=== PATIENT | male | born 1940 | race Caucasian/White ===

== ENCOUNTER 2018-02-23 10:00 | Emergency (ER) | payer MEDICARE ==
--- OUTSIDE RECORDS SUMMARY | 2018-02-23 10:19 | XMS REPORT ---
:1940 External Reference #:[id number] Author Organization [facility] Address [address] [place] [address] Phone [phone] Care Team Providers Name Role Phone Iraj Burton MD Primary Care Physician Unavailable Payers Type Date Identification Numbers Payment Provider Subscriber Medicare Primary Effective: Policy Number: Medicare Christoph Milian 2007 [id number] PayID: [id number] [address] [place] [address] Medigap Part B Expires: 2012 Policy Number: [facility] Michelle Milian [id number] Group Number: [id number] [address] [address] PayID: [id number] KedarLAKHWINDER [place]bell [id number] Problems Date Description Provider Status Onset: 06/11/2007 Coronary arteriosclerosis Ximena Velasco M.D.,FACMarcia Onset: 09/24/2014 Mild chronic obstructive pulmonary Ximena Velasco disease Ashley,FACP Note: on PFTs Onset: 06/11/2007 Impaired fasting glycaemia Ximena Velasco M.D.,FACP Onset: 01/04/2010 Ex-smoker Ximena Velasco M.D.,FACP Onset: 07/13/2010 Mixed hyperlipidemia Ximena Velasco M.D.,FACP Onset: 07/17/2011 Obesity Ximena Velasco M.D.,FACP Onset: 04/10/2014 Essential hypertension Ximena Velasco M.D.,FACP Onset: 09/08/2015 Gastroesophageal reflux disease Iraj Burton Active Ashley,ALEXP Onset: 06/11/2007 Tobacco user Iraj Burton, Inactive Ashley,ALEXP Inactive: 10/03/2012 Onset: 06/11/2007 Pure hypercholesterolemia Iraj Burton M.D.,FACP Resolved Resolved: 10/03/2012 Onset: 08/15/2011 Injury of shoulder region Alistair Morse M.D. Resolved Resolved: 10/03/2012 Onset: 08/15/2011 Swelling of limb Alistair Morse M.D. 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 Quit December 2007 Daily Caffeine Consumes on average 3 cups of regular coffee per day Exercise Type/Frequency Exercises regularly at gym 4-5x/wk General Hx Text 16 yo daughter in [employer] school Allergies, Adverse Reactions, Alerts Date Description Reaction Status Severity Comments 06/11/2007 Wellbutrin active Medications Medication Date Status Form Strength Qnty SIG Indications Ordering Provider Losartan Active Tablets 100mg 90tabs 1 by mouth R05 Iraj Potassium 018 every day Hamlet Burton M.D.,FACP Acetaminophen- Active Tablets 300-30mg 30tabs 1-2 tab by Carl Maldonado Codeine #3 017 mouth at Hamlet Burton, night as M.Hamlet,FACP needed Doxycycline Active Tablets 100mg 8tabs 2 tabs po Iraj Hyclate 017 X1, repeat Hamlet Burton, as needed M.D.,FACP Meclizine HCL Active Tablets 25mg 30tabs 1/2-1 by Iraj 017 mouth three Hamlet Burton, times a day M.D.,FACP as needed Knee Brace Active Misc 1units right knee M23.303 Artis F 017 medial Izzy, float nurse MD stevens M71.21 Viagra 09/08/2015 Active Tablets 50mg 10tabs 1 by mouth N52.1 Iraj as needed Hamlet [facility] Flomax 09/08/2015 Active Capsules 0.4mg 90caps Take 1 N52.1 Iraj Capsule By Hamlet Burton, Mouth Every M.D.,FACP Day Omeprazole 05/21/[address] 20mg 90caps take 1 R05 Carl Maldonado capsule by Hamlet Burton, mouth every M.D.,FACP day Lipitor 04/15/2015 Active Tablets 20mg 90tabs Take 1 I25.10 Iraj Tablet By Hamlet Burton, Mouth AT M.D.,[facility] Bedtime Aspirin 04/10/2014 Active Chewtabs 81mg 1 tab daily I25.10 Iraj Burton M.D.,[facility] Nitroquick 06/11/2007 Active Tablets Sub 0.4mg 50tabs q5 min x3 as I25.10 Iraj needed Hamlet Burton M.D.,[facility] Losartan 12/22/2016 - Hx Tablets 50mg 135tabs take 1 and R05 Iraj Potassium 10/10/2017 1/2 tablets Hamlet Burton, by mouth one M.D.,FACP time daily Ranitidine HCL 10/18/2016 - Hx Capsules 150mg 30caps 1 by mouth K21.9 Iraj 10/10/2017 every day as Hamlet Burton, needed M.D.,FACP Guaifenesin-Co 08/30/2016 - Hx Solution 100-1 118ml take 10 R05 Zsofia deine 10/18/2016 0mg/5 milliliters Bashir, ML by mouth [employer] every evening with plenty of water as needed for cough for 7 days as needed Celebrex 08/08/2016 - Hx Capsules 100mg 60caps 1 tab by M23.30 Artis F 10/10/2017 mouth twice 3 Izzy, a day as MD needed Ibuprofen 04/12/2016 - Hx Tablets 200mg 2-3 tabs a M25.56 Iraj 07/24/2017 day as 1 Hamlet Burton, needed M.D.,FACP Omeprazole 03/03/2015 - Hx Capsules DR 40mg 30caps Take 1 R05 Iraj 05/21/2015 Capsule By Hamlet Burton, Mouth Every M.D.,FACP Day Flomax 03/03/2015 - Hx Capsules 0.4mg 90caps Take 1 R35.1 Iraj 09/08/2015 Capsule By Hamlet Burton, Mouth Every M.D.,FACP Day Losartan 03/03/2015 - Hx Tablets 25mg 90tabs Take 1 R05 Iraj Potassium 12/22/2016 Tablet By Hamlet Burton, Mouth Every M.D.,FACP Day Levaquin 11/20/2014 - Hx Tablets 500mg 5tabs 1 by mouth Jamie 03/03/2015 every day Ashley Tang Zofran 11/19/2014 - Hx Tablets 4mg 30tabs 1 tablet by 787.91 Jamie 03/03/2015 mouth three Tang, times a day M.D. as needed Pantoprazole 08/03/2014 - Hx Solution Rec 40mg 30units 1 by mouth 786.2 Cj Sodium 03/03/2015 every day TABBY Gore Atorvastatin 07/13/2014 - Hx Tablets 20mg 90tabs Take One 414.00 Carl Maldonado Calcium 04/15/2015 Tablet By Hamlet Burton, Mouth Every M.D.,FACP Evening Saw [place] 04/10/2014 - Hx Capsules 160mg twice a day 600.00 Carl Maldonado 03/03/2015 Hamlet Burton M.D.,FACP Lisinopril 04/10/2014 - Hx Tablets 5mg 30tabs 1 by mouth 786.2 Carl Joel 03/03/2015 every day Hamlet Burton M.D.,[facility] Cortisporin 04/10/2014 - Hx Solution 3.5-1 1units 4 ggt r ear 698.9 Iraj 11/18/2014 0000- four times a Hamlet Burton, 1 day for 5-10 M.D.,FACP days Acetasol HC 08/21/2013 - Hx Solution 2-1% 10ml 3-4 ggts to 380.23 WolfgangSandra Joel 04/10/2014 ears tid for Hamlet Burton, 3 days prn M.D.,FACP Lipitor 08/21/2013 - Hx Tablets 20mg 90tabs one tab by 414.00 Iraj 07/13/2014 mouth every Hamlet Burton, night at M.D.,FACP bedtime Robitussin 09/19/2012 - Hx Syrup 100mg 118ml 10 ml po q4h 465.9 Yady Chest 10/03/2012 /5ML prn Chad, Congestion N.P. Atorvastatin 08/28/2011 - Hx Tablets 20mg 90tabs Take One 414.00 Carl Maldonado Calcium 08/21/2013 Tablet By Hamlet Burton, Mouth Every M.D.,[facility] Evening Lipitor 07/17/2011 - Hx Tablets 20mg 90tabs qpm po 272.2 Iraj 08/28/2011 Hamlet Burton M.D.,FACP Aspirin 06/19/2011 - Hx Chewtabs 81mg 305.1 Karen 04/10/2014 Ashley Summers Cipro HC Otic 01/17/2011 - Hx Suspension 10ml 3 ggt ear 382.02 Carl Maldonado 06/19/2011 ear bid for Hamlet Burton, 1 week M.D.,FACP Ceftin 09/12/2010 - Hx Tablets 500mg 14tabs po bid 466.0 Iraj 01/17/2011 Hamlet Burton [facility] Robitussin 09/12/2010 - Hx Solution 200ml 1-2 tsp qid 466.0 Iraj With Codeine 01/17/2011 prn Hamlet Burton M.D.,FACP Aspirin Ec 01/04/2010 - Hx Tablets DR 325mg po qd 305.1 Iraj 06/19/2011 Hamlet Burton M.D.,FACP Levitra 01/04/2010 - Hx Tablets 20mg 12tabs 1 tablet 607.84 Iraj 11/16/2011 qd prn Hamlet Burton M.D.,FACP samples Crestor 01/04/2010 - Hx Tablets 20mg 90tabs Take 1 272.2 Iraj 07/17/2011 Tablet By Hamlet Burton, Mouth Daily Ashley,FACP In The Evening. Azithromycin 10/12/2009 - Hx Tablets 500mg 5tabs 1 tab qd for 462 Carl Maldonado 12/06/2009 5days Hamlet Burton M.D.,FACP Amoxicillin-Po 06/23/2009 - Hx Tablets 875-1 28tabs 1 bid x 14 461.8 Iraj narvaez Clavulanate 10/12/2009 25mg days Hamlet Burton M.D.,FACP Nasonex 06/23/2009 - Hx Suspension 50mcg 1units 2 spays each 461.8 Wolfgang Sanchez 04/10/2014 /Act nostril Hamlet Burton, daily prn Ashley,FACP 381.89 Ibuprofen 04/01/2009 - Hx Tablets 600mg 30tabs qhs prn 608.9 Carl Mcnulty 10/12/2009 Ashley Burton,FACP Cortisporin 03/29/2009 - Hx 1Bottle 4 gtts in 380.10 Iraj Mcnulty Otic gtts 10/12/2009 affected Josephine ear tid x 7 Ashley,FACP days Simvastatin 06/11/2007 - Hx Tablets 20mg 90tabs po qhs 305.1 Iraj Mcnulty 01/04/2010 Ashley Burton,FACP Aspir-Jane 06/11/2007 - Hx Tablets DR 325mg qd 305.1 Iraj Mcnulty 01/04/2010 Ashley Burton,FACP Multi For Him - Hx Capsules 30caps 1 po qd Unknown 04/10/2014 Co Q-10 - Hx Capsules unsure of Unknown 04/10/2014 mgs Vitamin C - Hx Capsules unsure of Unknown 04/10/2014 mgs Vitamin D - Hx Tablets 30tabs 1 po qd Unknown 04/10/2014 unsure of mgs Fish Oil - Hx Capsules unsure of Unknown Burp-Less 04/10/2014 mgs takes 3-4 times per week Tramadol HCL - Hx Tablets 50mg 20tabs 1-2 tablets Carl Mcnulty 09/08/2015 every 6 Sharon, hours as Ashley,FACP needed Medications Administered in Office Medication Date Status Form Strength Qnty SIG Indications Ordering Provider Depomedrol Administered Injection Artis F 40MG 017 MD Cecile Maganaomedjose Administered Injection Artis F 40MG 017 MD Cecile Maganaomedrol Administered Injection Artis F 40MG 017 MD Izzy Technetium TC Administered Injection Kenzie 99M 014 Annel You M.D. Per Unit Dose Up To 40 Millicuries Immunizations CPT Code Status Date Vaccine Lot # [id number] Given 06/01/2017 Influenza Virus Vaccine, Quadrivalent, Split, [id number] Preservative Free 52036 Given 07/20/2016 Zoster (Zostavax) [id number] 94691 Given 07/20/2016 Influenza Virus Vaccine, Quadrivalent, Split [id number] Virus, Im Use 72608 Given 09/08/2015 Pneumococcal Conjugate Vaccine 13 Valent For [id number] Intramuscular Use 19374 Given 05/21/2015 Influenza Virus Vaccine, Quadrivalent, Split, [id number] Preservative Free 59352 Given 07/21/2014 Flu Vaccine Split Virus Preservative Free For [id number] Indiv 3Yr Older Q2037 Given 08/21/2013 Fluvirin Im 3Yrs And Older [id number] 62022 Given 06/16/2012 Influenza Virus 3Yrs & Over [id number] Given 06/19/2011 Fluzone Vaccine [id number] 97412 Given 07/13/2010 Influenza Virus 3Yrs & Over [id number] 28514 Given 09/08/2008 Influenza Virus 3Yrs & Over [id number] 26613 Given 06/11/2007 Pneumonia Vaccine 68918 Given 06/11/2007 Pneumonia Vaccine [id number] 82451 Given 06/11/2007 Influenza Virus 3Yrs & Over [id number] Vital Signs Date Vital Result Comment 02/13/2018 Height 67 inches 5'7" Weight 204.12 lb Heart Rate 67 /min BP Systolic Sitting 156 mmHg BP Diastolic Sitting 78 mmHg Body Temperature 98.1 F O2 % BldC Oximetry 96 % BMI (Body Mass Index) 32.0 kg/m2 10/10/2017 Height 67 inches 5'7" Weight 207.00 lb Heart Rate 80 /min BP Systolic Sitting 150 mmHg BP Diastolic Sitting 80 mmHg Body Temperature 97.5 F O2 % BldC Oximetry 94 % BMI (Body Mass Index) 32.4 kg/m2 07/24/2017 Weight 207.00 lb Heart Rate 77 /min BP Systolic Sitting 190 mmHg BP Diastolic Sitting 80 mmHg Body Temperature 97.9 F O2 % BldC Oximetry 95 % 06/01/2017 Weight 205.00 lb Heart Rate 70 /min BP Systolic Sitting 142 mmHg BP Diastolic Sitting 70 mmHg Body Temperature 97.6 F O2 % BldC Oximetry 97 % 04/05/2017 Height 68 inches 5'8" Weight 200.00 lb Heart Rate 69 /min BP Systolic Sitting 165 mmHg BP Diastolic Sitting 77 mmHg Respiratory Rate 15 /min Body Temperature 97.3 F Pain Level 8 BMI (Body Mass Index) 30.4 kg/m2 03/12/2017 Weight 203.00 lb Heart Rate 76 /min BP Systolic Sitting 178 mmHg BP Diastolic Sitting 88 mmHg BP Systolic Recheck 182 mmHg BP Diastolic Recheck 88 mmHg Body Temperature 97.9 F O2 % BldC Oximetry 98 % 12/22/2016 Weight 202.00 lb Heart Rate 75 /min BP Systolic 166 mmHg BP Diastolic 90 mmHg BP Systolic Recheck 180 mmHg BP Diastolic Recheck 84 mmHg Body Temperature 97.4 F O2 % BldC Oximetry 96 % 12/08/2016 Height 68 inches 5'8" Weight 199.00 lb w/o shoes Heart Rate 60 /min reg BP Systolic 116 mmHg Rue, lg cuff BP Diastolic 74 mmHg Rue, lg cuff BP Systolic Sitting 128 mmHg Lue, lg cuff BP Diastolic Sitting 70 mmHg Lue, lg cuff BP Systolic Standing 124 mmHg Lue BP Diastolic Standing 70 mmHg Lue Respiratory Rate 16 /min BMI (Body Mass Index) 30.3 kg/m2 11/13/2016 Height 68 inches 5'8" Weight 200.00 lb Heart Rate 79 /min BP Systolic 139 mmHg BP Diastolic 76 mmHg Body Temperature 97.1 F BMI (Body Mass Index) 30.4 kg/m2 10/18/2016 Height 66.5 inches 5'6.50" Weight 200.50 lb Heart Rate 78 /min BP Systolic Sitting 126 mmHg BP Diastolic Sitting 60 mmHg Body Temperature 97.3 F O2 % BldC Oximetry 97 % BMI (Body Mass Index) 31.9 kg/m2 09/19/2016 Height 68 inches 5'8" Weight 200.00 lb Heart Rate 81 /min BP Systolic 162 mmHg BP Diastolic 77 mmHg Respiratory Rate 16 /min BMI (Body Mass Index) 30.4 kg/m2 08/30/2016 Weight 202.50 lb Heart Rate 78 /min BP Systolic Sitting 158 mmHg BP Diastolic Sitting 72 mmHg Body Temperature 98.1 F O2 % BldC Oximetry 98 % 08/08/2016 Height 68 inches 5'8" Weight 206.00 lb Respiratory Rate 18 /min Pain Level 6 BMI (Body Mass Index) 31.3 kg/m2 07/20/2016 Weight 207.50 lb Heart Rate 73 /min BP Systolic Sitting 168 mmHg BP Diastolic Sitting 73 mmHg Body Temperature 97.9 F O2 % BldC Oximetry 97 % 04/12/2016 Height 68 inches 5'8" Weight 207.00 lb Heart Rate 80 /min BP Systolic Sitting 154 mmHg BP Diastolic Sitting 64 mmHg Body Temperature 98.1 F O2 % BldC Oximetry 96 % BMI (Body Mass Index) 31.5 kg/m2 03/27/2016 Weight 204.50 lb Heart Rate 78 /min BP Systolic 138 mmHg BP Diastolic 66 mmHg Body Temperature 98.1 F O2 % BldC Oximetry 97 % 09/08/2015 Height 68 inches 5'8" Weight 202.00 lb Heart Rate 70 /min BP Systolic Sitting 149 mmHg BP Diastolic Sitting 72 mmHg Body Temperature 97.2 F O2 % BldC Oximetry 97 % BMI (Body Mass Index) 30.7 kg/m2 05/21/2015 Height 68 inches 5'8" Weight 204.00 lb Heart Rate 72 /min BP Systolic Sitting 149 mmHg BP Diastolic Sitting 65 mmHg Body Temperature 97.5 F O2 % BldC Oximetry 97 % BMI (Body Mass Index) 31.0 kg/m2 03/30/2015 Height 68 inches 5'8" Weight 200.00 lb Heart Rate 70 /min BP Systolic Sitting 134 mmHg BP Diastolic Sitting 68 mmHg Body Temperature 97.7 F O2 % BldC Oximetry 97 % BMI (Body Mass Index) 30.4 kg/m2 03/03/2015 Height 68 inches 5'8" Weight 196.12 lb Heart Rate 66 /min BP Systolic Sitting 144 mmHg BP Diastolic Sitting 80 mmHg Body Temperature 97.6 F O2 % BldC Oximetry 98 % BMI (Body Mass Index) 29.8 kg/m2 11/19/2014 Height 68 inches 5'8" Weight 194.00 lb Heart Rate 102 /min BP Systolic Sitting 134 mmHg BP Diastolic Sitting 76 mmHg Body Temperature 97.5 F O2 % BldC Oximetry 97 % BMI (Body Mass Index) 29.5 kg/m2 09/09/2014 Height 68 inches 5'8" Weight 207.00 lb Heart Rate 76 /min BP Systolic Sitting 157 mmHg BP Diastolic Sitting 73 mmHg Body Temperature 97.5 F O2 % BldC Oximetry 96 % BMI (Body Mass Index) 31.5 kg/m2 08/03/2014 Weight 198.50 lb Heart Rate 88 /min BP Systolic Sitting 166 mmHg BP Diastolic Sitting 68 mmHg Body Temperature 97.3 F 07/21/2014 Weight 203.00 lb Heart Rate 71 /min BP Systolic Sitting 137 mmHg BP Diastolic Sitting 71 mmHg Body Temperature 97.7 F O2 % BldC Oximetry 96 % 04/10/2014 Height 67 inches 5'7" Weight 197.00 lb Heart Rate 72 /min BP Systolic Sitting 144 mmHg BP Diastolic Sitting 74 mmHg Body Temperature 97.7 F BMI (Body Mass Index) 30.9 kg/m2 08/21/2013 Height 67.25 inches 5'7.25" Weight 201.00 lb Heart Rate 68 /min BP Systolic Sitting 119 mmHg BP Diastolic Sitting 70 mmHg BMI (Body Mass Index) 31.2 kg/m2 10/03/2012 Height 67.25 inches 5'7.25" Weight 200.50 lb Heart Rate 80 /min BP Systolic Sitting 126 mmHg BP Diastolic Sitting 64 mmHg BMI (Body Mass Index) 31.2 kg/m2 09/19/2012 Height 67.25 inches 5'7.25" Weight 197.00 lb Heart Rate 72 /min BP Systolic 156 mmHg BP Diastolic 80 mmHg Body Temperature 97.5 F O2 % BldC Oximetry 98 % BMI (Body Mass Index) 30.6 kg/m2 03/11/2012 Height 67.25 inches 5'7.25" Weight 195.00 lb Heart Rate 72 /min BP Systolic Sitting 130 mmHg BP Diastolic Sitting 68 mmHg BMI (Body Mass Index) 30.3 kg/m2 11/16/2011 Height 66.75 inches 5'6.75" Weight 199.00 lb Heart Rate 82 /min BP Systolic Sitting 148 mmHg BP Diastolic Sitting 78 mmHg BMI (Body Mass Index) 31.4 kg/m2 08/15/2011 Height 66.75 inches 5'6.75" Weight 204.00 lb Heart Rate 68 /min BP Systolic Sitting 130 mmHg l BP Diastolic Sitting 72 mmHg l BMI (Body Mass Index) 32.2 kg/m2 07/17/2011 Height 66.75 inches 5'6.75" Weight 203.00 lb Heart Rate 74 /min BP Systolic Sitting 130 mmHg BP Diastolic Sitting 76 mmHg BMI (Body Mass Index) 32.0 kg/m2 06/19/2011 Height 66.75 inches 5'6.75" Weight 203.00 lb Heart Rate 68 /min BP Systolic 150 mmHg Before the Pt left. BP Diastolic 88 mmHg Before the Pt left. BP Systolic Sitting 140 mmHg BP Diastolic Sitting 90 mmHg BMI (Body Mass Index) 32.0 kg/m2 01/17/2011 Weight 201.00 lb Heart Rate 70 /min BP Systolic 168 mmHg BP Diastolic 78 mmHg 09/12/2010 Weight 193.00 lb Heart Rate 76 /min BP Systolic Sitting 142 mmHg BP Diastolic Sitting 82 mmHg Body Temperature 100.4 F Tympanically 07/13/2010 Weight 195.00 lb Heart Rate 76 /min BP Systolic Sitting 136 mmHg BP Diastolic Sitting 74 mmHg 01/04/2010 Weight 196.00 lb Heart Rate 74 /min Irregular Pulse BP Systolic Sitting 132 mmHg BP Diastolic Sitting 74 mmHg 10/12/2009 Weight 195.00 lb Heart Rate 60 /min BP Systolic Sitting 140 mmHg BP Diastolic Sitting 80 mmHg Respiratory Rate 16 /min Body Temperature 98.8 F 06/23/2009 Height 68 inches 5'8" Weight 195.00 lb Heart Rate 64 /min BP Systolic Sitting 146 mmHg BP Diastolic Sitting 72 mmHg BMI (Body Mass Index) 29.6 kg/m2 04/01/2009 Height 68 inches 5'8" Weight 193.00 lb Heart Rate 72 /min BP Systolic Sitting 124 mmHg BP Diastolic Sitting 72 mmHg BMI (Body Mass Index) 29.3 kg/m2 03/29/2009 Height 68 inches 5'8" Weight 195.00 lb Heart Rate 76 /min BP Systolic Sitting 126 mmHg BP Diastolic Sitting 70 mmHg BMI (Body Mass Index) 29.6 kg/m2 03/11/2009 Height 68 inches 5'8" Weight 191.00 lb Heart Rate 60 /min BP Systolic Sitting 130 mmHg BP Diastolic Sitting 76 mmHg Body Temperature 97.7 F BMI (Body Mass Index) 29.0 kg/m2 10/13/2008 Height 68 inches 5'8" Weight 194.00 lb Heart Rate 66 /min BP Systolic Sitting 146 mmHg BP Diastolic Sitting 84 mmHg BMI (Body Mass Index) 29.5 kg/m2 09/08/2008 Height 68 inches 5'8" Weight 195.00 lb Heart Rate 76 /min BP Systolic Sitting 152 mmHg BP Diastolic Sitting 78 mmHg Body Temperature 97.0 F BMI (Body Mass Index) 29.6 kg/m2 02/12/2008 Height 68 inches 5'8" Weight 187.00 lb Heart Rate 74 /min BP Systolic Sitting 122 mmHg BP Diastolic Sitting 70 mmHg BMI (Body Mass Index) 28.4 kg/m2 01/23/2008 Height 68 inches 5'8" Weight 187.00 lb Heart Rate 78 /min BP Systolic Sitting 138 mmHg BP Diastolic Sitting 80 mmHg BMI (Body Mass Index) 28.4 kg/m2 06/11/2007 Height 68 inches 5'8" Weight 175.00 lb Heart Rate 72 /min BP Systolic Sitting 122 mmHg BP Diastolic Sitting 70 mmHg BMI (Body Mass Index) 26.6 kg/m2 Results Test Date Test Result H/L Range Note Basic Metabolic Panel 10/10/2017 Sodium 138 mmol/L 133-145 Potassium 4.8 mmol/L 3.5-5.0 Chloride 106 mmol/L 101-111 Co2 Carbon Dioxide 24 mmol/L 22-32 Anion Gap 8 mmol/L 2-11 Glucose 123 mg/dL High 70-100 Blood Urea Nitrogen 22 mg/dL 6-24 Creatinine 1.13 mg/dL 0.67-1.17 BUN/Creatinine Ratio 19.5 8-20 Calcium 9.1 mg/dL 8.6-10.3 Egfr Non- 63.3 >60 Egfr 81.4 >60 1 Lipid Profile (Trig/Chol/HDL) 10/10/2017 Triglycerides 96 mg/dL 2 Cholesterol 146 mg/dL 3 HDL Cholesterol 54.9 mg/dL 4 LDL Cholesterol 72 mg/dL 5 Liver Function Panel 10/10/2017 Total Protein 6.9 g/dL 6.4-8.9 Albumin 4.1 g/dL 3.2-5.2 Globulin 2.8 g/dL 2-4 Albumin/Globulin Ratio 1.5 1-3 Total Bilirubin 0.70 mg/dL 0.2-1.0 Direct Bilirubin 0.20 mg/dL High 0.03-0.18 Indirect Bilirubin 0.5 mg/dL 0.3-1.0 Alkaline Phosphatase 69 U/L 34-104 Alt 21 U/L 7-52 Ast 22 U/L 13-39 CBC Auto Diff 10/10/2017 White Blood Count 8.2 10^3/uL 3.5-10.8 Red Blood Count 4.64 10^6/uL 4.0-5.4 Hemoglobin 14.6 g/dL 14.0-18.0 Hematocrit 43 % 42-52 Mean Corpuscular Volume 93 fL 80-94 Mean Corpuscular Hemoglobin 32 pg High 27-31 Mean Corpuscular HGB Conc 34 g/dL 31-36 Red Cell Distribution Width 13 % 10.5-15 Platelet Count 222 10^3/uL 150-450 Mean Platelet Volume 8 um3 7.4-10.4 Abs Neutrophils 4.4 10^3/uL 1.5-7.7 Abs Lymphocytes 2.6 10^3/uL 1.0-4.8 Abs Monocytes 0.6 10^3/uL 0-0.8 Abs Eosinophils 0.6 10^3/uL 0-0.6 Abs Basophils 0.1 10^3/uL 0-0.2 Abs Nucleated RBC 0 10^3/uL Granulocyte % 53.2 % 38-83 Lymphocyte % 31.2 % 25-47 Monocyte % 7.8 % High 0-7 Eosinophil % 6.7 % High 0-6 Basophil % 1.1 % 0-2 Nucleated Red Blood Cells % 0 Laboratory test finding 10/10/2017 Testosterone Total 213.23 ng/dL Low 240 -950 PSA Diagnostic 2.746 ng/mL 0-4.000 6 CBC Auto Diff 10/16/2016 White Blood Count 8.7 10^3/uL 3.5-10.8 Red Blood Count 4.66 10^6/uL 4.0-5.4 Hemoglobin 14.6 g/dL 14.0-18.0 Hematocrit 43 % 42-52 Mean Corpuscular Volume 93 fL 80-94 Mean Corpuscular Hemoglobin 31 pg 27-31 Mean Corpuscular HGB Conc 34 g/dL 31-36 Red Cell Distribution Width 14 % 10.5-15 Platelet Count 210 10^3/uL 150-450 Mean Platelet Volume 8 um3 7.4-10.4 Abs Neutrophils 4.8 10^3/uL 1.5-7.7 Abs Lymphocytes 2.7 10^3/uL 1.0-4.8 Abs Monocytes 0.7 10^3/uL 0-0.8 Abs Eosinophils 0.4 10^3/uL 0-0.6 Abs Basophils 0.1 10^3/uL 0-0.2 Abs Nucleated RBC 0.01 10^3/uL Granulocyte % 55.8 % 38-83 Lymphocyte % 30.7 % 25-47 Monocyte % 7.9 % 1-9 Eosinophil % 4.3 % 0-6 Basophil % 1.3 % 0-2 Nucleated Red Blood Cells % 0.1 Laboratory test finding 10/16/2016 Vitamin B12 314 pg/mL 180-914 7 Lipid Profile (Trig/Chol/HDL) 10/16/2016 Triglycerides 66 mg/dL 8 Cholesterol 131 mg/dL 9 HDL Cholesterol 52.9 mg/dL 10 LDL Cholesterol 65 mg/dL 11 Basic Metabolic Panel 10/16/2016 Sodium 135 mmol/L 133-145 Potassium 4.4 mmol/L 3.5-5.0 Chloride 104 mmol/L 101-111 Co2 Carbon Dioxide 25 mmol/L 22-32 Anion Gap 6 mmol/L 2-11 Glucose 109 mg/dL High 70-100 Blood Urea Nitrogen 21 mg/dL 6-24 Creatinine 1.13 mg/dL 0.67-1.17 BUN/Creatinine Ratio 18.6 8-20 Calcium 9.1 mg/dL 8.6-10.3 Egfr Non- 63.4 >60 Egfr 81.6 >60 12 Lipid Profile (Trig/Chol/HDL) 08/18/2015 Triglycerides 110 mg/dL 13 Cholesterol 139 mg/dL 14 HDL Cholesterol 57.4 mg/dL 15 LDL Cholesterol 60 mg/dL 16 Basic Metabolic Panel 08/18/2015 Sodium 137 mmol/L 133-145 Potassium 4.7 mmol/L 3.5-5.0 Chloride 104 mmol/L 101-111 Co2 Carbon Dioxide 26 mmol/L 22-32 Anion Gap 7 mmol/L 2-11 Glucose 104 mg/dL High 70-100 Blood Urea Nitrogen 21 mg/dL 6-24 Creatinine 0.99 mg/dL 0.67-1.17 BUN/Creatinine Ratio 21.2 High 8-20 Calcium 9.1 mg/dL 8.6-10.3 Egfr Non- 74.1 >60 Egfr 95.3 >60 17 Laboratory test 08/18/2015 Hemoglobin A1c (Glyco 5.6 % Less than 6.0 18 finding HGB) Laboratory test 03/05/2015 Blood Urea Nitrogen 16 mg/dL 6-24 finding BUN Creatinine 03/05/2015 Creatinine 1.05 mg/dL 0.67-1.17 Egfr Non- 69.4 >60 Egfr 89.3 >60 19 O&P Ova & Parasites Full 11/19/2014 Ova Parasite Concen Full (SEE NOTE) 20, 21 Laboratory test finding 11/19/2014 Stool Culture (SEE NOTE) 20, 22 O P: Giardia/Cryptospor Screen (SEE NOTE) 20, 23 Lipid Panel - [facility] 04/07/2014 Creatine Kinase 149 U/L 10-223 24, 25 Comp Metabolic Panel 04/07/2014 Sodium 136 mmol/L 133-145 24 Potassium 4.2 mmol/L 3.7-5.6 24 Chloride 105 mmol/L 101-111 24 Co2 Carbon Dioxide 24 mmol/L 22-32 24 Anion Gap 7 mmol/L 2-11 24 Glucose 100 mg/dL 70-100 24 Blood Urea Nitrogen 16 mg/dL 6-24 24 Creatinine 0.96 mg/dL 0.67-1.17 24 BUN/Creatinine Ratio 16.7 8-20 24 Calcium 8.7 mg/dL 8.6-10.3 24 Total Protein 6.8 g/dL 6.4-8.9 24 Albumin 4.0 g/dL 3.2-5.2 24 Globulin 2.8 g/dL 2-4 24 Albumin/Globulin Ratio 1.4 1-3 24 Total Bilirubin 0.90 mg/dL 0.2-1.0 24 Alkaline Phosphatase 59 U/L 34-104 24 Alt 20 U/L 7-52 24 Ast 20 U/L 13-39 24 Egfr Non- 77.2 >60 24 Egfr 99.3 >60 24, 26 Lipid Profile (Trig/Chol/HDL) 04/07/2014 Triglycerides 150 mg/dL 24, 27 Cholesterol 138 mg/dL 24, 28 HDL Cholesterol 49.5 mg/dL 24, 29 LDL Cholesterol 59 mg/dL 24, 30 DR Garcia's Lab Panel 09/27/2012 TSH (Thyroid Stimulating 1.30 miu/mL 0.34-5.60 31 Horm) Comp Metabolic Panel 09/27/2012 Sodium 137 mmol/L 133-145 Potassium 4.7 mmol/L 3.5-5.0 Chloride 108 mmol/L 101-111 Co2 Carbon Dioxide 21.0 mmol/L Low 22-32 Anion Gap 8.0 mmol/L 2-11 Glucose 102 mg/dL High 70-100 Blood Urea Nitrogen 14 mg/dL 6-24 Creatinine 0.90 mg/dL 0.50-1.40 BUN/Creatinine Ratio 15.6 8-20 Calcium 9.1 mg/dL 8.1-9.9 Total Protein 6.7 g/dL 6.2-8.1 Albumin 4.0 g/dL 3.2-5.2 Globulin 2.7 g/dL 2-4 Albumin/Globulin Ratio 1.5 1-3 Total Bilirubin 1.2 mg/dL 0.4-1.5 Alkaline Phosphatase 56 U/L 30-110 Alt 31 U/L 14-54 Ast 38 U/L 12-42 Egfr Non- 83.4 >60 Egfr 107.3 >60 32 Lipid Profile (Trig/Chol/HDL) 09/27/2012 Triglycerides 58 mg/dL 40-200 Cholesterol 162 mg/dL Less than 200 HDL Cholesterol 60 mg/dL 40-60 33 Cholesterol/HDL Ratio 2.7 Average 1-4.44 LDL Cholesterol 90.4 mg/dL Less Than 100 34 CBC Auto Diff 09/27/2012 White Blood Count 8.5 10^3/uL 4.8-10.8 Red Blood Count 4.94 10^6/uL 4.0-5.4 Hemoglobin 16.0 g/dL 14.0-18.0 Hematocrit 48 % 42-52 Mean Corpuscular Volume 97 fL High 80-94 Mean Corpuscular Hemoglobin 33 pg High 27-31 Mean Corpuscular HGB Conc 34 g/dL 31-36 Red Cell Distribution Width 14 % 10.5-15 Platelet Count 173 10^3/uL 150-450 Mean Platelet Volume 9 um3 7.4-10.4 Abs Neutrophils 4.8 10^3/uL 1.5-7.7 Abs Lymphocytes 2.4 10^3/uL 1.0-4.8 Abs Monocytes 0.7 10^3/uL 0-0.8 Abs Eosinophils 0.4 10^3/uL 0-0.6 Abs Basophils 0.1 10^3/uL 0-0.2 Abs Nucleated RBC 0.02 10^3/uL Granulocyte % 57.0 % 38-83 Lymphocyte % 28.8 % 25-47 Monocyte % 8.2 % 1-9 Eosinophil % 4.6 % 0-6 Basophil % 1.4 % 0-2 Nucleated Red Blood Cells % 0.3 Lipid Panel - [facility] 03/05/2012 CPK (Creatine Kinase) 133 U/L 0-200 Comp Metabolic Panel 03/05/2012 Sodium 135 mmol/L 135-145 Potassium 3.9 mmol/L 3.5-5.0 Chloride 105 mmol/L 101-111 Co2 (Carbon Dioxide) 24.0 mmol/L 22-32 Anion Gap 6.0 mmol/L 2-11 35 Glucose 92 mg/dL 70-100 BUN 15 mg/dL 6-24 Creatinine 1.0 mg/dL 0.50-1.40 One Over Creatinine 1.00 BUN/Creatinine Ratio 15.0 8-20 Calcium 9.0 mg/dL 8.1-9.9 Total Protein 6.7 GM/DL 6.2-8.1 Albumin 3.9 GM/DL 3.2-5.2 Globulin 2.8 GM/DL 2-4 Albumin/Globulin Ratio 1.4 1-3 Bilirubin Total 1.1 mg/dL 0.4-1.5 36 Alkaline Phosphatase 69 U/L 39-117 Alt (SGPT) 27 U/L 17-63 Ast (Sgot) 26 U/L 12-42 eGFR Non- 74.1 > 60 eGFR 95.3 > 60 37 Lipid Profile (Trig/Chol/HDL) 03/05/2012 Triglyceride 158 mg/dL 40-200 Cholesterol 172 mg/dL Less Than 200 38 High Density Lipoprotein 58 mg/dL 40-60 39 Cholesterol/HDL Ratio 2.97 AVERAGE 1-4.97 Low Density Lipoprotein 82 mg/dL Less Than 100 40 Lipid Panel - [facility] 10/19/2011 CPK (Creatine Kinase) 183 U/L 0-200 Comp Metabolic Panel 10/19/2011 Sodium 134 mmol/L Low 135-145 Potassium 4.7 mmol/L 3.5-5.0 Chloride 103 mmol/L 101-111 Co2 (Carbon Dioxide) 25.0 mmol/L 22-32 Anion Gap 6.0 mmol/L 2-11 41 Glucose 106 mg/dL High 70-100 BUN 13 mg/dL 6-24 Creatinine 0.9 mg/dL 0.50-1.40 One Over Creatinine 1.11 BUN/Creatinine Ratio 14.4 8-20 Calcium 8.7 mg/dL 8.1-9.9 Total Protein 6.7 GM/DL 6.2-8.1 Albumin 3.9 GM/DL 3.2-5.2 Globulin 2.8 GM/DL 2-4 Albumin/Globulin Ratio 1.4 1-3 Bilirubin Total 0.9 mg/dL 0.4-1.5 42 Alkaline Phosphatase 72 U/L 39-117 Alt (SGPT) 27 U/L 17-63 Ast (Sgot) 30 U/L 12-42 eGFR Non- 83.7 > 60 eGFR 107.6 > 60 43 Lipid Profile (Trig/Chol/HDL) 10/19/2011 Triglyceride 134 mg/dL 40-200 Cholesterol 212 mg/dL High Less Than 200 44 High Density Lipoprotein 55 mg/dL 40-60 45 Cholesterol/HDL Ratio 3.85 AVERAGE 1-4.97 Low Density Lipoprotein 130 mg/dL High Less Than 100 46 Lipid Profile (Trig/Chol/HDL) 07/11/2011 Triglyceride 125 mg/dL 40-200 Cholesterol 158 mg/dL Less Than 200 47 High Density Lipoprotein 55 mg/dL 40-60 48 Cholesterol/HDL Ratio 2.87 AVERAGE 1-4.97 Low Density Lipoprotein 78 mg/dL Less Than 100 49 Comp Metabolic Panel 07/11/2011 Sodium 138 mmol/L 135-145 Potassium 4.5 mmol/L 3.5-5.0 Chloride 102 mmol/L 101-111 Co2 (Carbon Dioxide) 28.0 mmol/L 22-32 Anion Gap 8.0 mmol/L 2-11 50 Glucose 108 mg/dL High 70-100 BUN 12 mg/dL 6-24 Creatinine 1.0 mg/dL 0.50-1.40 One Over Creatinine 1.00 BUN/Creatinine Ratio 12.0 8-20 Calcium 9.2 mg/dL 8.1-9.9 Total Protein 6.3 GM/DL 6.2-8.1 Albumin 4.1 GM/DL 3.2-5.2 Globulin 2.2 GM/DL 2-4 Albumin/Globulin Ratio 1.9 1-3 Bilirubin Total 1.0 mg/dL 0.4-1.5 51 Alkaline Phosphatase 61 U/L 39-117 Alt (SGPT) 33 U/L 17-63 Ast (Sgot) 33 U/L 12-42 eGFR Non- 74.1 > 60 eGFR 95.3 > 60 52 Laboratory test 07/11/2011 Hemoglobin A1c 6.5 % High Less Than 6.0 53 finding Laboratory test 06/20/2010 Testosterone Total 244.2 ng/dL 175-781 finding FSH And LH 06/20/2010 FSH 6.46 MIU/ML 54 Lutenizing Hormone 3.60 MIU/ML 55 Lipid Panel - [facility] 06/20/2010 CPK (Creatine Kinase) 118 U/L 0-200 Comp Metabolic Panel 06/20/2010 Sodium 137 mmol/L 135-145 Potassium 4.8 mmol/L 3.5-5.0 Chloride 105 mmol/L 101-111 Co2 (Carbon Dioxide) 25.0 mmol/L 22-32 Anion Gap 7.0 mmol/L 2-11 56 Glucose 96 mg/dL 70-100 57 BUN 15 mg/dL 6-24 Creatinine 1.00 mg/dL 0.50-1.40 One Over Creatinine 1.00 BUN/Creatinine Ratio 15.0 8-20 Calcium 9.2 mg/dL 8.1-9.9 Total Protein 7.5 GM/DL 6.2-8.1 Albumin 4.5 GM/DL 3.2-5.2 Globulin 3.0 GM/DL 2-4 Albumin/Globulin Ratio 1.5 1-3 Bilirubin Total 1.0 mg/dL 0.4-1.5 58 Alkaline Phosphatase 68 U/L 39-117 Alt (SGPT) 32 U/L 17-63 Ast (Sgot) 33 U/L 12-42 eGFR Non- 79.0 > 60 eGFR 95.6 > 60 59 Lipid Profile (Trig/Chol/HDL) 06/20/2010 Triglyceride 141 mg/dL 40-200 Cholesterol 156 mg/dL Less Than 200 60 High Density Lipoprotein 60 mg/dL 40-60 61 Cholesterol/HDL Ratio 2.60 AVERAGE 1-4.97 Low Density Lipoprotein 68 mg/dL Less Than 100 62 Laboratory test finding 01/04/2010 Hemoglobin A1c 5.8 5-7 Comp Metabolic Panel 12/28/2009 Sodium 136 mmol/L 135-145 Potassium 4.8 mmol/L 3.5-5.0 Chloride 105 mmol/L 101-111 Co2 (Carbon Dioxide) 24.0 mmol/L 22-32 Anion Gap 7.0 mmol/L 2-11 63 Glucose 97 mg/dL 70-100 64 BUN 18 mg/dL 6-24 Creatinine 0.90 mg/dL 0.50-1.40 One Over Creatinine 1.10 BUN/Creatinine Ratio 20.0 8-20 Calcium 8.8 mg/dL 8.1-9.9 65 Total Protein 6.8 GM/DL 6.2-8.1 Albumin 4.0 GM/DL 3.2-5.2 Globulin 2.8 GM/DL 2-4 Albumin/Globulin Ratio 1.4 1-3 Bilirubin Total 1.1 mg/dL 0.4-1.5 66 Alkaline Phosphatase 68 U/L 39-117 Alt (SGPT) 22 U/L 17-63 Ast (Sgot) 28 U/L 12-42 eGFR Non- 89.5 > 60 eGFR 108.2 > 60 67 Lipid Profile (Trig/Chol/HDL) 12/28/2009 Triglyceride 64 mg/dL 40-200 Cholesterol 175 mg/dL Less Than 200 68 High Density Lipoprotein 55 mg/dL 40-60 69 Cholesterol/HDL Ratio 3.18 AVERAGE 1-4.97 Low Density Lipoprotein 107 mg/dL High Less Than 100 70 Laboratory test finding 12/28/2009 PSA Screening 1.56 NG/ML 0-4 71 Lipid Panel - [facility] 12/28/2009 CPK (Creatine Kinase) 203 U/L High 0-200 Laboratory test finding 10/12/2009 Throat Culture Full NF 72 CBC With Manual Diff 09/11/2008 White Blood Count 10.9 CUMM High 4.8-10.8 73 Red Cell Count 4.76 CUMM 4.6-6.2 73 Hemoglobin 15.4 g/dL 14.0-18.0 73 Hematocrit 44 % 42-52 73 Mean Corpuscular Volume 93 um3 80-94 73 Mean Corpuscular Hemoglob 32 pg High 27-31 73 Mean Corpuscular HGB Cone 35 g/dL 32-36 73 Redcell Distribution WDTH 13 % 10.5-15 73 Platelet Count 260 CUMM 150-450 73 Mean Platelet Volume 7.5 um3 7.4-10.4 73 Polysegmented Neutrophil 65 % 38-83 73 Band Neutrophil 1 % 0-8 73 Lymphocyte 27 % 25-47 73 Monocyte 5 % 0-13 73 Eosenophil 2 % 0-6 73 Absolute Neutrophil Count 7.1 73 RBC Morphology NORMAL 73 Laboratory test finding 09/11/2008 PSA Screening 1.39 NG/ML 0-4 73, 74 Basic Metabolic Panel 09/11/2008 Sodium 137 mmol/L 135-145 73 Potassium 4.9 mmol/L 3.5-5.0 73 Chloride 104 mmol/L 101-111 73 Co2 (Carbon Dioxide) 28.0 mmol/L 22-32 73 Anion Gap 5.0 mmol/L 2-11 73, 75 Glucose 106 mg/dL High 70-100 73, 76 BUN 13 mg/dL 6-24 73 Creatinine 1.00 mg/dL 0.50-1.40 73 One Over Creatinine 1.00 73 BUN/Creatinine Ratio 13.0 8-20 73 Calcium 9.3 mg/dL 8.1-9.9 73, 77 Lipid Profile (Trig/Chol/HDL) 09/11/2008 Triglyceride 92 mg/dL 40-200 73 Cholesterol 165 mg/dL Less Than 200 73, 78 High Density Lipoprotein 51 mg/dL 40-60 73, 79 Cholesterol/HDL Ratio 3.24 AVERAGE 1-4.97 73 Low Density Lipoprotein 96 mg/dL Less Than 100 73, 80 1 Because ethnic data is not always readily available, this report includes an eGFR for both -Americans and non- Americans. The National Kidney Disease Education Program (NKDEP) does not endorse the use of the MDRD equation for patients that are not between the ages of 18 and 70, are , have extremes of body size, muscle mass, or nutritional status, or are non- or non-. According to the National Kidney Foundation, irrespective of diagnosis, the stage of the disease is based on the level of kidney function: Stage Description GFR(mL/min/1.73 m(2)) 1 Kidney damage with normal or decreased GFR 90 2 Kidney damage with mild decrease in GFR 60-89 3 Moderate decrease in GFR 30-59 4 Severe decrease in GFR 15-29 5 Kidney failure <15 (or dialysis) 2 Desirable: <150 Borderline High: 150-199 High: 200-499 Very High: >500 3 Desirable: <200 Borderline High: 200-239 High: >239 4 Low: <40 Desirable: 40-60 High: >60 5 Desirable: <100 Near Optimal: 100-129 Borderline High: 130-159 High: 160-189 Very High: >189 6 Serum levels of PSA measured using the [employer] DXI Hybritech immunoassay should not be interpreted as absolute evidence of the presence or absence of disease. The PSA value should be used in conjunction with other pertinent clinical diagnostic procedures. The values obtained with different assay methods or kits cannot be used interchangeably. 7 Normal Range 180 to 914 Indeterminate Range 145 to 180 Deficient Range <145 8 Desirable <150 Borderline high 150-199 High 200-499 Very High >500 9 Desirable <200 Borderline high 200-239 High >239 10 Low <40 Desirable: 40-60 High: >60 11 Desirable: <100 mg/dL Near Optimal: 100-129 mg/dL Borderline High: 130-159 mg/dL High: 160-189 mg/dL Very High: >189 mg/dL 12 Because ethnic data is not always readily available, this report includes an eGFR for both -Americans and non- Americans. The National Kidney Disease Education Program (NKDEP) does not endorse the use of the MDRD equation for patients that are not between the ages of 18 and 70, are , have extremes of body size, muscle mass, or nutritional status, or are non- or non-. According to the National Kidney Foundation, irrespective of diagnosis, the stage of the disease is based on the level of kidney function: Stage Description GFR(mL/min/1.73 m(2)) 1 Kidney damage with normal or decreased GFR 90 2 Kidney damage with mild decrease in GFR 60-89 3 Moderate decrease in GFR 30-59 4 Severe decrease in GFR 15-29 5 Kidney failure <15 (or dialysis) 13 Desirable <150 Borderline high 150-199 High 200-499 Very High >500 14 Desirable <200 Borderline high 200-239 High >239 15 Low <40 Desirable: 40-60 High: >60 16 Desirable: <100 mg/dL Near Optimal: 100-129 mg/dL Borderline High: 130-159 mg/dL High: 160-189 mg/dL Very High: >189 mg/dL 17 Because ethnic data is not always readily available, this report includes an eGFR for both -Americans and non- Americans. The National Kidney Disease Education Program (NKDEP) does not endorse the use of the MDRD equation for patients that are not between the ages of 18 and 70, are , have extremes of body size, muscle mass, or nutritional status, or are non- or non-. According to the National Kidney Foundation, irrespective of diagnosis, the stage of the disease is based on the level of kidney function: Stage Description GFR(mL/min/1.73 m(2)) 1 Kidney damage with normal or decreased GFR 90 2 Kidney damage with mild decrease in GFR 60-89 3 Moderate decrease in GFR 30-59 4 Severe decrease in GFR 15-29 5 Kidney failure <15 (or dialysis) 18 Therapeutic target for the treatment of diabetes Mellitus patients is <7% HBA1C, and in selective patients <6.0%.Please refer to [place] [employer] Diabetic care guidelines for further information. 19 Because ethnic data is not always readily available, this report includes an eGFR for both -Americans and non- Americans. The National Kidney Disease Education Program (NKDEP) does not endorse the use of the MDRD equation for patients that are not between the ages of 18 and 70, are , have extremes of body size, muscle mass, or nutritional status, or are non- or non-. According to the National Kidney Foundation, irrespective of diagnosis, the stage of the disease is based on the level of kidney function: Stage Description GFR(mL/min/1.73 m(2)) 1 Kidney damage with normal or decreased GFR 90 2 Kidney damage with mild decrease in GFR 60-89 3 Moderate decrease in GFR 30-59 4 Severe decrease in GFR 15-29 5 Kidney failure <15 (or dialysis) 20 Submitted to [facility] via [employer] system by [id number] at 1417 on 11/20/14. Verbal to ADIS [email or web address] RUN DATE: 11/20/14 [facility] LAB LIVE PAGE 1 RUN TIME: [address], [place], [place] [address] Specimen Inquiry Name: MAICOLCHRISTOPH : [address]: Jamie Tang MD Acct: [id number] Unit: [id number] AGE: 74 Location: [facility] Re11/19/14 SEX: M Status: REG REF SPEC: [id number] ALFREDITO: 11/19/14-[address]: Jamie Tang MD REQ: [id number] RECD: 11/19/14-1016 STATUS: RES _ SOURCE: STOOL SPDESC: ORDERED: Stool Culture, O P: Giar/Crypt COMMENTS: Submitted to [facility] via [employer] system by [id number] at 1417 on 11/20/14. Verbal to ADIS VAZQUEZ by [email or web address] at 1503 on 11/20/14. Results read back accurately. QUERIES: Provider Requisition # [id number] Procedure Result Verified Site Stool Culture Preliminary 11/20/14- 1324 ML Organism 1 CAMPYLOBACTER SPECIES Shiga Toxin 1 2 Final 11/20/14- 0947 ML Organism 1 Negative Shiga Toxin 1 2 Immunochromatographic Assay O P: Giardia/Cryptospor Screen PENDING * ML - MAIN LAB ([facility]) . END OF REPORT * ML=Testing performed at Main Lab DEPARTMENT OF PATHOLOGY, [address] [place] [address] Johnathan Evans M.D. Director [facility] # [id number] RUN DATE: 11/21/14 [facility] LAB LIVE PAGE 1 RUN TIME: [address] [place] [address] Specimen Inquiry Name: CHRISTOPH MILIAN : [address]: Jamie Tang MD Acct: [id number] Unit: [id number] AGE: 74 Location: [facility] Re11/19/14 SEX: M Status: REG REF SPEC: [id number] ALFREDITO: 11/19/14-[address] [facility] [address]: Jamie Tang MD REQ: [id number] RECD: 11/19/14-1017 STATUS: COMP _ SOURCE: STOOL SPDESC: ORDERED: Stool Culture, O P: Giar/Crypt COMMENTS: [email or web address] via [employer] system by [email or web address] at 1417 on 11/20/14. Verbal to ADIS VAZQUEZ by [id number] at 1503 on 11/20/14. Results read back accurately. QUERIES: Provider Requisition # [id number] Procedure Result Verified Site Stool Culture Final 11/21/14- 1335 ML Organism 1 CAMPYLOBACTER SPECIES Result No additional pathogens isolated Testing for Salmonella, Shigella, Aeromonas, Plesiomonas, Yersinia and Campylobacter are included in a Stool Culture. Vibrio spp not routinely tested for in a stool culture. If testing is desired, please request specifically when placing test order. Sensitivities not routinely performed on stool isolates, as antibiotics may prolong the carriage rate of bacteria. Please contact the microbiology lab if sensitivities are required. Shiga Toxin 1 2 Final 11/20/14- 0947 ML Organism 1 Negative Shiga Toxin 1 2 CONTINUED ON NEXT PAGE * ML=Testing performed at Main Lab DEPARTMENT OF PATHOLOGY, [facility] [place], [place] [address] Johnathan Evans M.D. Director [facility] # [id number] RUN DATE: 11/21/14 [facility] LAB LIVE PAGE 2 RUN TIME: [address] [place] [address] Specimen Inquiry Patient: CHRISTOPH MILIAN [id number] (Continued) Specimen: [id number] Collected: 11/19/14 Received: 11/19/14-7 (Continued) Procedure Result Verified Site Shiga Toxin 1 2 Final (continued) 11/20/14- 0947 Immunochromatographic Assay O P: Giardia/Cryptospor Screen Final 11/20/14- 1505 ML Organism 1 Neg Cryptosporidium/Giardia Giardia and cryptosporidium antigen testing performed by enzyme immunoassay. If patient is immunocompromised or has traveled to or is from a developing country, a full ova and parasite exam with microscopic (OPMIC) is recommended. All samples will be held one month in case full ova and parasite testing is requested. Contact the Microbiology Department at [phone]. TEST LIMITATIONS: As with all diagnostic procedures, the results obtained should be used in conjunction with other clinical information available the physician, including confirmation by another method. Negative results can occur in samples containing antigen below lower limits of detection of the assay. One negative specimen does not rule out the possibility of a parasitic infection. To improve detection it is recommended that three specimens be collected on separate days over a period of not more than seven days. The use of colonic washes, aspirates or other diluted sample types has not been established and could affect the performance of the assay. Stool samples contaminated with an oily or particulate base (eg. Barium, mineral oil etc.) could interfere with the test and are not recommended. * ML - MAIN LAB ([facility]) . END OF REPORT * ML=Testing performed at Main Lab DEPARTMENT OF PATHOLOGY, [address] [place] [address] Johnathan Evans M.D. Director [facility] # [id number] RUN DATE: 11/20/14 [facility] LAB LIVE PAGE 1 RUN TIME: [address] [place] [address] Specimen Inquiry Name: CHRISTOPH MILIAN : [address]: Jamie Tang MD Acct: [id number] Unit: [id number] AGE: 74 Location: [facility] Re11/19/14 SEX: M Status: REG REF SPEC: [id number] ALFREDITO: 11/19/14-[address]: Jamie Tang MD REQ: [id number] RECD: 11/19/14-7 STATUS: RES _ SOURCE: STOOL SPDESC: ORDERED: Stool Culture, O P: Giar/Crypt COMMENTS: Submitted to [facility] via [employer] system by [email or web address] at 1417 on 11/20/14. Verbal to ADIS VAZQUEZ by [id number] at 1503 on 11/20/14. Results read back accurately. QUERIES: Provider Requisition # [id number] Procedure Result Verified Site Stool Culture Preliminary 11/20/14- 1324 ML Organism 1 CAMPYLOBACTER SPECIES Shiga Toxin 1 2 Final 11/20/14- 0947 ML Organism 1 Negative Shiga Toxin 1 2 Immunochromatographic Assay O P: Giardia/Cryptospor Screen Final 11/20/14- 1505 ML Organism 1 Neg Cryptosporidium/Giardia Giardia and cryptosporidium antigen testing performed by enzyme immunoassay. If patient is immunocompromised or has traveled to or is from a developing country, a full ova and parasite exam with microscopic (OPMIC) is recommended. All samples will be held one month in case full ova and parasite testing is requested. Contact the Microbiology Department at [phone]. TEST LIMITATIONS: As with all diagnostic procedures, the results obtained should be used in conjunction with other clinical information available the physician, including confirmation CONTINUED ON NEXT PAGE * ML=Testing performed at Main Lab DEPARTMENT OF PATHOLOGY, [facility] [place], [place] [address] Johnathan Evans M.D. Director [facility] # [id number] RUN DATE: 11/20/14 [facility] LAB LIVE PAGE 2 RUN TIME: 3814 [facility] [place], [place] [address] Specimen Inquiry Patient: CHRISTOPH MILIAN [id number] (Continued) Specimen: [id number] Collected: 11/19/14 Received: 11/19/14-1016 (Continued) Procedure Result Verified Site O P: Giardia/Cryptospor Screen Final (continued) 11/20/14- 1505 by another method. Negative results can occur in samples containing antigen below lower limits of detection of the assay. One negative specimen does not rule out the possibility of a parasitic infection. To improve detection it is recommended that three specimens be collected on separate days over a period of not more than seven days. The use of colonic washes, aspirates or other diluted sample types has not been established and could affect the performance of the assay. Stool samples contaminated with an oily or particulate base (eg. Barium, mineral oil etc.) could interfere with the test and are not recommended. * ML - MAIN LAB ([facility]) . END OF REPORT * ML=Testing performed at Main Lab DEPARTMENT OF PATHOLOGY, [address] [place] [address] Johnathan Evans M.D. Director [facility] # [id number] FASTING 10 HOUR 25 FASTING 10 HOUR 26 Because ethnic data is not always readily available, this report includes an eGFR for both -Americans and non- Americans. The National Kidney Disease Education Program (NKDEP) does not endorse the use of the MDRD equation for patients that are not between the ages of 18 and 70, are , have extremes of body size, muscle mass, or nutritional status, or are non- or non-. According to the National Kidney Foundation, irrespective of diagnosis, the stage of the disease is based on the level of kidney function: Stage Description GFR(mL/min/1.73 m(2)) 1 Kidney damage with normal or decreased GFR 90 2 Kidney damage with mild decrease in GFR 60-89 3 Moderate decrease in GFR 30-59 4 Severe decrease in GFR 15-29 5 Kidney failure <15 (or dialysis) 27 Desirable <150 Borderline high 150-199 High 200-499 Very High >500 28 Desirable <200 Borderline high 200-239 High >239 29 Low <40 Desirable: 40-60 High: >60 30 Desirable <100 Near Optimal 100-129 Borderline high 130-159 High 160-189 Very High >189 31 Fasting 32 Because ethnic data is not always readily available, this report includes an eGFR for both -Americans and non- Americans. The National Kidney Disease Education Program (NKDEP) does not endorse the use of the MDRD equation for patients that are not between the ages of 18 and 70, are , have extremes of body size, muscle mass, or nutritional status, or are non- or non-. According to the National Kidney Foundation, irrespective of diagnosis, the stage of the disease is based on the level of kidney function: Stage Description GFR(mL/min/1.73 m(2)) 1 Kidney damage with normal or decreased GFR 90 2 Kidney damage with mild decrease in GFR 60-89 3 Moderate decrease in GFR 30-59 4 Severe decrease in GFR 15-29 5 Kidney failure <15 (or dialysis) 33 HDL Interpretation: Undesirable: High Risk: Less than 40 MG/DL Desirable: Low Risk: Greater than 60 MG/DL 34 LDL Interpretation: Low Risk Optimal Level: LDL Less than 100 MG/DL Near or Above Optimal: LDL 100-129 MG/DL Borderline High Risk: LDL 130-159 MG/DL High Risk: LDL 160-189 MG/DL Very High Risk: LDL Greater than 189 MG/DL 35 Anion gap measurement may be of limited value in the presence of any alkalosis, especially in a combined acid base disorder. . 36 A metabolite of Naproxen, O-desmethylnaproxen, has been shown to interfere with the Jendrassik-Nicole method for measuring total bilirubin. Samples from patients who have taken Naproxen have shown spurious elevation in total bilirubin levels. 37 Because ethnic data is not always readily available, this report includes an eGFR for both -Americans and non- Americans. The National Kidney Disease Education Program (NKDEP) does not endorse the use of the MDRD equation for patients that are not between the ages of 18 and 70, are , have extremes of body size, muscle mass, or nutritional status, or are non- or non-. According to the National Kidney Foundation, irrespective of diagnosis, the stage of the disease is based on the level of kidney function: Stage Description GFR(mL/min/1.73 m(2)) 1 Kidney damage with normal or decreased GFR 90 2 Kidney damage with mild decrease in GFR 60-89 3 Moderate decrease in GFR 30-59 4 Severe decrease in GFR 15-29 5 Kidney failure <15 (or dialysis) 38 CHOLESTEROL INTERPRETATION: Desirable: Less than 200 MG/DL Borderline-High Risk: 200-239 MG/DL High-Risk: 240 MG/DL and over 39 HDL INTERPRETATION: Undesirable: High Risk: Less than 40 MG/DL Desirable: Low Risk: Greater than 60 MG/DL 40 LDL INTERPRETATION: Low Risk Optimal Level: LDL Less than 100 MG/DL Near or Above Optimal: LDL 100-129 MG/DL Borderline High Risk: LDL 130-159 MG/DL High Risk: LDL 160-189 MG/DL Very High Risk: LDL Greater than 189 MG/DL 41 Anion gap measurement may be of limited value in the presence of any alkalosis, especially in a combined acid base disorder. . 42 A metabolite of Naproxen, O-desmethylnaproxen, has been shown to interfere with the Jendrassik-Nicole method for measuring total bilirubin. Samples from patients who have taken Naproxen have shown spurious elevation in total bilirubin levels. 43 Because ethnic data is not always readily available, this report includes an eGFR for both -Americans and non- Americans. The National Kidney Disease Education Program (NKDEP) does not endorse the use of the MDRD equation for patients that are not between the ages of 18 and 70, are , have extremes of body size, muscle mass, or nutritional status, or are non- or non-. According to the National Kidney Foundation, irrespective of diagnosis, the stage of the disease is based on the level of kidney function: Stage Description GFR(mL/min/1.73 m(2)) 1 Kidney damage with normal or decreased GFR 90 2 Kidney damage with mild decrease in GFR 60-89 3 Moderate decrease in GFR 30-59 4 Severe decrease in GFR 15-29 5 Kidney failure <15 (or dialysis) 44 CHOLESTEROL INTERPRETATION: Desirable: Less than 200 MG/DL Borderline-High Risk: 200-239 MG/DL High-Risk: 240 MG/DL and over 45 HDL INTERPRETATION: Undesirable: High Risk: Less than 40 MG/DL Desirable: Low Risk: Greater than 60 MG/DL 46 LDL INTERPRETATION: Low Risk Optimal Level: LDL Less than 100 MG/DL Near or Above Optimal: LDL 100-129 MG/DL Borderline High Risk: LDL 130-159 MG/DL High Risk: LDL 160-189 MG/DL Very High Risk: LDL Greater than 189 MG/DL 47 CHOLESTEROL INTERPRETATION: Desirable: Less than 200 MG/DL Borderline-High Risk: 200-239 MG/DL High-Risk: 240 MG/DL and over 48 HDL INTERPRETATION: Undesirable: High Risk: Less than 40 MG/DL Desirable: Low Risk: Greater than 60 MG/DL 49 LDL INTERPRETATION: Low Risk Optimal Level: LDL Less than 100 MG/DL Near or Above Optimal: LDL 100-129 MG/DL Borderline High Risk: LDL 130-159 MG/DL High Risk: LDL 160-189 MG/DL Very High Risk: LDL Greater than 189 MG/DL 50 Anion gap measurement may be of limited value in the presence of any alkalosis, especially in a combined acid base disorder. . 51 A metabolite of Naproxen, O-desmethylnaproxen, has been shown to interfere with the Jendrassik-Hensley method for measuring total bilirubin. Samples from patients who have taken Naproxen have shown spurious elevation in total bilirubin levels. 52 Because ethnic data is not always readily available, this report includes an eGFR for both -Americans and non- Americans. The National Kidney Disease Education Program (NKDEP) does not endorse the use of the MDRD equation for patients that are not between the ages of 18 and 70, are , have extremes of body size, muscle mass, or nutritional status, or are non- or non-. According to the National Kidney Foundation, irrespective of diagnosis, the stage of the disease is based on the level of kidney function: Stage Description GFR(mL/min/1.73 m(2)) 1 Kidney damage with normal or decreased GFR 90 2 Kidney damage with mild decrease in GFR 60-89 3 Moderate decrease in GFR 30-59 4 Severe decrease in GFR 15-29 5 Kidney failure <15 (or dialysis) 53 THERAPEUTIC TARGET FOR THE TREATMENT OF DIABETES MELLITUS PATIENTS IS <7% HBA1C, AND IN SELECTIVE PATIENTS <6.0%. PLEASE REFER TO [employer] DIABETIC CARE GUIDELINES FOR FURTHER INFORMATION. 54 NORMAL RANGE MALES 1 - 20 NORMALLY MENSTRUATING FEMALES - Follicular Phase 3 - 9 - Mid-Cycle Peak 4 - 23 - Luteal Phase 1 - 6 POSTMENOPAUSAL FEMALES 16 - 114 . 55 NORMAL RANGE MALES 2 - 12 NORMALLY MENSTRUATING FEMALES - Follicular Phase 1 - 18 - Mid-Cycle Peak 24 - 105 - Luteal Phase 0.6 - 20 POSTMENOPAUSAL FEMALES 15 - 62 . 56 Anion gap measurement may be of limited value in the presence of any alkalosis, especially in a combined acid base disorder. . 57 Note change in reference range as of 03/26/08. The change was based on recommendations from the [place] [employer]. 58 A metabolite of Naproxen, O-desmethylnaproxen, has been shown to interfere with the Jendrassik-Nicole method for measuring total bilirubin. Samples from patients who have taken Naproxen have shown spurious elevation in total bilirubin levels. 59 Because ethnic data is not always readily available, this report includes an eGFR for both -Americans and non- Americans. The National Kidney Disease Education Program (NKDEP) does not endorse the use of the MDRD equation for patients that are not between the ages of 18 and 70, are , have extremes of body size, muscle mass, or nutritional status, or are non- or non-. According to the National Kidney Foundation, irrespective of diagnosis, the stage of the disease is based on the level of kidney function: Stage Description GFR(mL/min/1.73 m(2)) 1 Kidney damage with normal or decreased GFR 90 2 Kidney damage with mild decrease in GFR 60-89 3 Moderate decrease in GFR 30-59 4 Severe decrease in GFR 15-29 5 Kidney failure <15 (or dialysis) 60 CHOLESTEROL INTERPRETATION: Desirable: Less than 200 MG/DL Borderline-High Risk: 200-239 MG/DL High-Risk: 240 MG/DL and over 61 HDL INTERPRETATION: Undesirable: High Risk: Less than 40 MG/DL Desirable: Low Risk: Greater than 60 MG/DL 62 LDL INTERPRETATION: Low Risk Optimal Level: LDL Less than 100 MG/DL Near or Above Optimal: LDL 100-129 MG/DL Borderline High Risk: LDL 130-159 MG/DL High Risk: LDL 160-189 MG/DL Very High Risk: LDL Greater than 189 MG/DL 63 Anion gap measurement may be of limited value in the presence of any alkalosis, especially in a combined acid base disorder. . 64 Note change in reference range as of 03/26/08. The change was based on recommendations from the [place] [employer]. 65 Please note change in reference range effective 08 . 66 A metabolite of Naproxen, O-desmethylnaproxen, has been shown to interfere with the Jendrassik-Hensley method for measuring total bilirubin. Samples from patients who have taken Naproxen have shown spurious elevation in total bilirubin levels. 67 Because ethnic data is not always readily available, this report includes an eGFR for both -Americans and non- Americans. The National Kidney Disease Education Program (NKDEP) does not endorse the use of the MDRD equation for patients that are not between the ages of 18 and 70, are , have extremes of body size, muscle mass, or nutritional status, or are non- or non-. According to the National Kidney Foundation, irrespective of diagnosis, the stage of the disease is based on the level of kidney function: Stage Description GFR(mL/min/1.73 m(2)) 1 Kidney damage with normal or decreased GFR 90 2 Kidney damage with mild decrease in GFR 60-89 3 Moderate decrease in GFR 30-59 4 Severe decrease in GFR 15-29 5 Kidney failure <15 (or dialysis) 68 CHOLESTEROL INTERPRETATION: Desirable: Less than 200 MG/DL Borderline-High Risk: 200-239 MG/DL High-Risk: 240 MG/DL and over 69 HDL INTERPRETATION: Undesirable: High Risk: Less than 40 MG/DL Desirable: Low Risk: Greater than 60 MG/DL 70 LDL INTERPRETATION: Low Risk Optimal Level: LDL Less than 100 MG/DL Near or Above Optimal: LDL 100-129 MG/DL Borderline High Risk: LDL 130-159 MG/DL High Risk: LDL 160-189 MG/DL Very High Risk: LDL Greater than 189 MG/DL 71 * SERUM LEVELS OF PSA MEASURED USING THE Raiing ACCESS HYBRITECH IMMUNOASSAY SHOULD NOT BE INTERPRETED ABSOLUTE EVIDENCE OF THE PRESENCE OR ABSENCE OF DISEASE. THE PSA VALUE SHOULD BE USED IN CONJUNCTION WITH OTHER PERTINENT CLINICAL DIAGNOSTIC PROCEDURES. 72 NORMAL THROAT ARTURO 73 FASTING 74 * SERUM LEVELS OF PSA MEASURED USING THE RUSTY GRAY ACCESS HYBRITECH IMMUNOASSAY SHOULD NOT BE INTERPRETED ABSOLUTE EVIDENCE OF THE PRESENCE OR ABSENCE OF DISEASE. THE PSA VALUE SHOULD BE USED IN CONJUNCTION WITH OTHER PERTINENT CLINICAL DIAGNOSTIC PROCEDURES. 75 Anion gap measurement may be of limited value in the presence of any alkalosis, especially in a combined acid base disorder. . 76 Note change in reference range as of 03/26/08. The change was based on recommendations from the [place] [employer]. 77 Please note change in reference range effective 08 . 78 CHOLESTEROL INTERPRETATION: Desirable: Less than 200 MG/DL Borderline-High Risk: 200-239 MG/DL High-Risk: 240 MG/DL and over 79 HDL INTERPRETATION: Undesirable: High Risk: Less than 40 MG/DL Desirable: Low Risk: Greater than 60 MG/DL 80 LDL INTERPRETATION: Low Risk Optimal Level: LDL Less than 100 MG/DL Near or Above Optimal: LDL 100-129 MG/DL Borderline High Risk: LDL 130-159 MG/DL High Risk: LDL 160-189 MG/DL Very High Risk: LDL Greater than 189 MG/DL Procedures Date CPT Code Description Status 05/22/2017 34715 ECHO Transthoracic, Real-Time 2D With Doppler And Color Completed Flow 04/05/2017 93352 Inject/Drain Joint/Bursa Major W/O US Completed 12/20/2016 72370 Treadmill Interp/Report Only Completed 12/20/2016 22244 Stress Test Supervsn W/Out I/R Completed 12/08/2016 52118 EKG Tracing & Interpretation Completed 11/13/2016 53197 Inject/Drain Joint/Bursa Major W/O US Completed 08/08/2016 59770 Inject/Drain Joint/Bursa Major W/O US Completed 09/11/2014 99136 Pulmonary Function><Bronchodil Completed 09/11/2014 08053 Plethysmography Determination Lung Volumes & Per Airway Completed Resist 09/11/2014 24484 Diffusing Capacity Completed 11/25/2013 26991 Polysomnography Sleep Staging 4+ Parameters Completed 09/02/2013 72976 Stress Test Completed 09/02/2013 07582 Myocardial Perfusion Imaging Tomographic (Spect) Completed Multiple Studies 08/30/2011 23333 Rad Exam; Elbow, Limited Completed 08/18/2011 05301 Closed Treatment Radial Head Or Neck FX W/O Completed Manipulation 07/21/2011 Diabetic Foot Exam Completed 07/26/2010 Colonoscopy Completed 07/06/2005 Colonoscopy Completed Encounters Type Date Location Provider CPT E/M Dx Office Visit 07/24/2017 [facility] Internal Iraj Burton, 28224 S22.31xA 8:30a Merry Hess M.D.,FACP Office Visit 06/01/2017 [facility] Internal Iraj Burton, 27192 A69.20 3:40p Medicine [address], M.D.,FACP Z23 Office Visit 04/05/2017 8:00a [facility], 60573 M17.12 Toño MCDANIEL Office Visit 03/12/2017 8:30a [facility] Internal Medicine Iraj Burton, 30978 I10 - Liat Low M.D.,FACP I25.10 Office Visit 12/22/2016 9:20a [facility] Internal Iraj Burton, 82374 H81.10 Medicine - Liat Low M.D.,FACP I10 Office Visit 12/08/2016 9:40a [facility] Kenzie You M.D. 45511 I25.10 [facility] AT [facility] [place] I10 E78.2 R06.02 Z01.810 M17.11 Office Visit 11/13/2016 1:00p [facility] Artis Magana, 61631 M93.261 Of Toño MCDANIEL M17.11 Office Visit 10/18/2016 1:00p [facility] Internal Iraj Burton, [address], M.D.,FACP I25.10 K21.9 M23.321 N40.1 Office Visit 09/19/2016 8:15a [facility] Artis Magana, 17872 M23.321 Of Toño MCDANIEL M70.41 Office Visit 08/30/2016 10:00a [facility] Internal Medicine - Eleazar Camejo, CLINICAL SCIENCE LIAISON 90005 R05 [place] Devante J20.9 Z12.83 Office Visit 08/08/2016 10:00a [facility] Artis Magana, 36057 M93.261 Of Toño MCDANIEL M70.41 Office Visit 07/20/2016 4:20p [facility] Internal Iraj Hamlet Burton, 70280 M17.11 Medicine - [place] Devante Ramirez,FACP I25.10 Z23 Office Visit 04/12/2016 1:40p [facility] Internal Iraj [place] Burton, 73912 M25.561 Medicine - [place] Devante Ramirez,FACP Office Visit 03/27/2016 9:10a [facility] Internal Iraj Burton, 50721 M25.561 Medicine - [place] Devante Ramirez,FACP Office Visit 09/08/2015 10:30a [facility] Internal Iraj Burton, 57654 Z00.00 Medicine - [place] Devante Ramirez,FACP I25.10 R73.01 I10 G60.8 N52.1 Z23 Office Visit 05/21/2015 1:40p [facility] Internal Iraj Burton, 63515 S70.12xD Medicine - [place] Devante Ramirez,FACP R05 Z23 Office Visit 03/30/2015 10:10a [facility] Internal Medicine Iraj Burton, 94402 786.2 - [place] Devante Ramirez,FACP 600.00 414.00 Office Visit 03/03/2015 9:50a [facility] Internal Medicine Iraj Burton, 07165 786.2 - [place] Devante Ramirez,FACP 238.2 788.43 Office Visit 11/19/2014 9:00a [facility] Internal Medicine Jamie Tang M.D. 61618 787.91 - [address] 276.51 Office Visit 09/09/2014 3:30p [facility] Internal Medicine Iraj Burton, 41348 786.2 - [place] Devante Ramirez,FACP 524.64 Office Visit 08/03/2014 10:30a [facility] [place] [address] 786.2 [place] Office Visit 07/21/2014 12:00p [facility] Internal Medicine - Yady Bonilla, 96360 786.2 [place] N.P. v04.81 Office Visit 04/10/2014 11:00a [facility] Internal Medicine Iraj Burton, 45234 V70.0 - Deshawn Ramirez,FACP 414.00 790.21 698.9 600.00 Office Visit 08/21/2013 9:10a [facility] Internal Medicine Iraj Burton, 39834 327.23 - Deshawn Ramirez,FACP 414.00 473.8 380.23 v04.81 Office Visit 09/19/2012 12:30p [facility] Internal Medicine Yady Bonilla, N.PLove 82775 381.89 - [place] 465.9 Office Visit 05/07/2012 8:30a [facility] Holiness Truong 36435 923.11 Of C.Jamal Quintana Office Visit 03/11/2012 9:30a [facility] Internal Medicine Iraj Burton, 76227 272.2 - Deshawn Ramirez,FACP 790.21 381.04 Office Visit 11/16/2011 8:50a [facility] Internal Medicine Iraj Burton, 41632 272.2 - Deshawn Ramirez,FACP 790.21 401.1 441.4 Office Visit 10/09/2011 2:30p [facility] Hector Stewart M.D. 16228 813.03 C.M.A. Office Visit 08/30/2011 9:45a [facility] Stewart M.D. 65760 813.05 C.M.A. 813.03 Office Visit 08/18/2011 10:45a [facility] AURELIO Palma 14795 813.05 Of C.M.A. 813.05 813.03 Office Visit 08/15/2011 10:40a [facility] Internal Medicine Alistair Morse, 20943 959.2 - Deshawn Ramirez 729.81 Office Visit 07/17/2011 9:10a DO Not Use Brim [facility] AT Iraj Burton, 08612 V70.0 Dwight Ramirez,FACP 272.2 278.00 790.21 719.47 Office Visit 06/19/2011 12:30p DO Not Use Brim Rounder AT Karen Summers M.D. 32648 719.47 [place] v04.81 916.4 Office Visit 01/17/2011 3:40p DO Not Use Brim Rounder AT [facility], 95530 382.02 [facility],FACP 216.9 278.02 Office Visit 09/12/2010 11:20a DO Not Use Brim Rounder AT [facility], 47809 466.0 [facility],FACP Office Visit 07/13/2010 11:40a DO Not Use Brim Rounder AT [facility], 95666 272.2 [facility] 257.2 414.01 V04.81 Office Visit 01/04/2010 3:00p DO Not Use Brim Rounder AT [facility], 60883 414.00 [facility] 790.6 V15.82 607.84 790.21 Office Visit 10/12/2009 11:30a [place] [address] 462 [facility] Office Visit 06/23/2009 11:30a DO Not Use [facility] [place] [address] 461.8 [facility] Office Visit 04/01/2009 3:40p DO Not Use Brim Rounder AT [facility], 29501 380.22 [facility] 608.9 Office Visit 03/29/2009 10:00a DO Not Use [place] [address] 380.10 [facility] 608.89 Office Visit 03/11/2009 4:00p DO Not Use Brim Rounder AT Tenzin Flores, 38356 380.89 [facility] 10/13/2008 8:30a DO Not Use Brim Rounder AT [facility], 65616 414.00 [facility] 272.0 790.21 Office Visit 09/08/2008 8:30a DO [place] [address] 790.21 [facility] 272.0 414.00 V76.44 V04.81 465.8 Office Visit 02/26/2008 1:00p [facility] Shai Vo, 05460 723.0 [facility] .[place] 721.0 728.85 Office Visit 02/12/2008 11:30a DO [place] [address] 723.1 [facility] 524.64 Office Visit 01/23/2008 8:30a DO [place] [address] 723.1 [facility] 414.00 790.21 272.0 Office Visit 06/11/2007 1:40p DO Not Use Brim Rounder AT IrajDaniel Burton, 51793 784.0 [facility].[place],[facility] 414.00 305.1 790.21 272.0 V04.81 V03.82 Plan of Care 02/13/2018 - Eleazar Camejo, FNPM79.671 Pain in right footComments:We discussed to start exercises to strengthen muscles.Wide to box shoes are often helpful to preventfoot problemsI am also giving you a referral to see Dr. Koroma.Referral: Matilde Koroma DPM, PodiatristFollow up:as [id number] CoughComments:Your lungs are clear.
[2018-02-23 11:17] LABS: ABS Basophils 0.1 10^3/ul (0-0.2); ABS Eosinophils 0.1 10^3/ul (0-0.6); ABS Lymphocytes 1.7 10^3/ul (1.0-4.8); ABS Monocytes 0.7 10^3/ul (0-0.8); ABS Neutrophils 12.2 10^3/ul (1.5-7.7); ABS Nucleated RBC 0 10^3/ul; Eosinophil % 0.4 % (0-6); Hematocrit 44 % (42-52); Hemoglobin 14.9 g/dl (14.0-18.0); Lymphocyte % 11.4 % (25-47); Mean Corpuscular HGB Conc 34 g/dl (31-36); Mean Corpuscular Hemoglobin 32 pg (27-31); Mean Corpuscular Volume 93 fL (80-94); Mean Platelet Volume 7.5 um3 (7.4-10.4); Nucleated Red Blood Cells % 0.1; Platelet Count 225 10^3/ul (150-450); Red Blood Count 4.72 10^6/ul (4.00-5.40); Red Cell Distribution Width 13 % (10.5-15); White Blood Count 14.6 10^3/ul (3.5-10.8)
[2018-02-23 11:35] LABS: EGFR Non-African American 66.7 (>60)
--- NOTE | 2018-02-23 11:35 | ED ---
Respiratory - HPI Summary HPI Summary: This is scrjosé antonio Reece documenting for attending Fer Whitley MD. Pt is a 77 y/o M sent by who presents to [facility] c/o bloody sputum since 9:00 today. He states last night he was uncomfortable in bed, felt mildly SOB and as if there was something in his throat he couldnt clear. This morning he had the same sensation, and was able to cough up blood-tinged sputum after leaning forward. Pt states he normally has sputum from his chest in the morning. Pt takes Omeprazole for his GERD, and has also been taking painkillers recently, which he is aware could irritate his stomach. Pt denies any fever, chills, difficulty swallowing, cough, CP, or current SOB. - History of Current Complaint Chief Complaint: EDThroatPain Stated Complaint: THROAT PAIN Time Seen by Provider: 02/23/18 11:01 Hx Obtained From: Family/Meat Dresser Onset/Duration: Sudden Onset, Lasting Days - Last night, Still Present Current Severity: Mild Pain Intensity: 2 Sputum Amount: Small Sputum Color: Red (Blood) Aggravating Factor(s): Nothing Alleviating Factor(s): Other - Talking Associated Signs and Symptoms: SOB - Resolved - Allergy/Home Medications Allergies/Adverse Reactions: Allergies Allergy/AdvReac Type Severity Reaction Status Date / Time bupropion [From Wellbutrin] Allergy Anxiety Verified 02/23/18 13:14 chocolate flavor Allergy Rash Verified 02/23/18 13:14 PMH/Surg Hx/FS Hx/Imm Hx Endocrine/Hematology History: Reports: Hx Anticoagulant Therapy - low dose ASA Denies: Hx Diabetes - BORDERLINE- WATCHING AT THIS TIME Cardiovascular History: Reports: Hx Coronary Artery Disease, Hx Hypercholesterolemia, Hx Hypertension - on new medication-doesn't remember the name Denies: Hx Congestive Heart Failure, Hx Pacemaker/ICD Respiratory History: Reports: Other Respiratory Problems/Disorders - chronic congestion, ex smoker Denies: Hx Sleep Apnea - no JS, tested 11/2013 GI History: Reports: Hx Gastroesophageal Reflux Disease History: Reports: Other Problems/Disorders - Prostrate screening Denies: Hx Renal Disease Sensory History: Reports: Hx Hearing Problem - recent erythema, yellow debris Denies: Hx Hearing Aid Psychiatric History: Denies: Hx Panic Disorder Infectious Disease History: No Infectious Disease History: Reports: History Other Infectious Disease - herpes genitalis Denies: Traveled Outside the [place] in Last 30 Days - Family History Known Family History: Positive: Cardiac Disease - [place], CHF, Hypertension - Social History Alcohol Use: Daily Alcohol Amount: 3-4 ounces hard liquor daily Substance Use Type: Reports: None Smoking Status (MU): Former Smoker Type: Cigarettes Amount Used/How Often: smoked age [age],stopped for 10 years,restarted and stopped off and on. Length of Time of Smoking/Using Tobacco: 20 Have You Smoked in the Last Year: No Review of Systems Negative: Fever, Chills ENT: Other - NEGATIVE: difficulty swallowing Negative: Chest Pain Positive: Shortness Of Breath - Resolved, Other - Bloody sputum. Negative: Cough All Other Systems Reviewed And Are Negative: Yes Physical Exam - Summary Physical Exam Summary: VITAL SIGNS: Reviewed. GENERAL: Patient is an eldery MALE who is lying comfortable in the stretcher. Patient is not in any acute respiratory distress. HEAD AND FACE: No signs of trauma. No ecchymosis, hematomas or skull depressions. No sinus tenderness. EYES: PERRLA, EOMI x 2, No injected conjunctiva, no nystagmus. EARS: Hearing grossly intact. Ear canals and tympanic membranes are within normal limits. MOUTH: No swelling of tongue or lips. Uvula slightly enlarged. No pharyngeal erythema or exudate. NECK: Supple, trachea is midline, no adenopathy, no JVD, no carotid bruit, no c- spine tenderness, neck with full ROM. CHEST: Symmetric, no tenderness at palpation LUNGS: Clear to auscultation bilaterally. No wheezing or crackles. Airway open and patent. CVS: Regular rate and rhythm, S1 and S2 present, no murmurs or gallops appreciated. ABDOMEN: Soft, non-tender. No signs of distention. No rebound no guarding, and no masses palpated. Bowel sounds are normal. EXTREMITIES: FROM in all major joints, no edema, no cyanosis or clubbing. NEURO: Alert and oriented x 3. No acute neurological deficits. Speech is normal and follows commands. SKIN: Dry and warm Triage Information Reviewed: Yes Vital Signs On Initial Exam: Initial Vitals Temp Pulse Resp BP Pulse Ox 97.7 F 85 16 200/97 96 02/23/18 10:01 02/23/18 10:01 02/23/18 10:01 02/23/18 10:01 02/23/18 10:01 Vital Signs Reviewed: Yes Diagnostics - Vital Signs Vital Signs Temp Pulse Resp BP Pulse Ox 02/23/18 10:01 97.7 F 85 16 200/97 96 - Laboratory Lab Results: Lab Results 02/23/18 Range/Units 11:06 WBC 14.6 H (3.5-10.8) 10^3/ul RBC 4.72 (4.00-5.40) 10^6/ul Hgb 14.9 (14.0-18.0) g/dl Hct 44 (42-52) % MCV 93 (80-94) fL MCH 32 H (27-31) pg MCHC 34 (31-36) g/dl RDW 13 (10.5-15) % Plt Count 225 (150-450) 10^3/ul MPV 7.5 (7.4-10.4) um3 Neut % (Auto) 83.4 H (38-83) % Lymph % (Auto) 11.4 L (25-47) % Burnett % (Auto) 4.4 (0-7) % Eos % (Auto) 0.4 (0-6) % Baso % (Auto) 0.4 (0-2) % Absolute Neuts (auto) 12.2 H (1.5-7.7) 10^3/ul Absolute Lymphs (auto) 1.7 (1.0-4.8) 10^3/ul Absolute Monos (auto) 0.7 (0-0.8) 10^3/ul Absolute Eos (auto) 0.1 (0-0.6) 10^3/ul Absolute Basos (auto) 0.1 (0-0.2) 10^3/ul Absolute Nucleated RBC 0 10^3/ul Nucleated RBC % 0.1 Result Diagrams: 02/23/18 11:06 02/23/18 11:06 Lab Statement: Any lab studies that have been ordered have been reviewed, and results considered in the medical decision making process. - Radiology CXR Radiology Interpretation Completed By: Radiologist - 11:25 Stigmata of probable chronic obstructive pulmonary disease. No acute cardiopulmonary process evident. ED physician reviewed radiology report. - EKG 11:21 Cardiac Rate: NL - 80 bpm EKG Rhythm: Sinus Rhythm ST Segment: Normal Re-Evaluation - Re-Evaluation First Eval Re-Evaluation Time: 12:41 Change: Unchanged Comment: Explained to pt why he needs a CXR. Disposition - Course Assessment/Plan: This patient is a 77-year-old male who presents to the emergency department with a chief complaint of sore throat and spitting up blood. He reports that the symptoms started yesterday and has worsened today. He reports that he went to the urgent care and he was told that he needs to come to the emergency department to rule out a pulmonary embolism. Test results without any significant abnormality except for what was a count of 14.6 , d-dimer 471, glucose 129, urinalysis is negative for UTI. Rapid strep is negative. Chest x-ray shows stigmata for probably COPD. No acute cardiopulmonary. Chest CT shows no evidence of PE. Findings of chronic obstructive pulmonary disease. Coronary artery calcifications. No acute pulmonary process. In the physical exam the patient has large uvula and I think the patient is having and uvulitis. The patient is not having any respiratory distress he is not in a tripod position, he is not anxious, he doesn t have any stridor, he is not having any drooling or respiratory distress. Therefore I have very low suspicion or no suspicion for epiglottitis. In the ED course the patient was given Decadron and Rocephin and his symptoms significantly improved. The patient reports that he does have any difficulty swallowing he doesnt have any feeling like his throat was closing. The patient was observed in the emergency department for approximately 5- hours and his symptoms did not return. The patient also was given labetalol for his hypertension. At this point the patients symptoms have improved and he is feeling better. He will is hemodynamically stable alert and oriented 3. He will be discharged home with follow-up with PCP. I discussed all the test results are findings with the patient and the need to follow-up with PCP. The patient was instructed to return to the emergency department if he develops any difficulty swallowing, swelling of the tongue, or any airway obstruction. He understands and agrees. All his concerns were addressed and he has no further questions. - Diagnoses Provider Diagnoses: Uvulitis, HTN (hypertension) Discharge - Sign-Out/Discharge Documenting (check all that apply): Patient Departure - Discharge - Discharge Plan Condition: Stable Disposition: HOME Prescriptions: Amoxicillin/Clavulanate TAB* [Augmentin TAB 875*] 875 mg PO BID #20 tab Patient Education Materials: Uvulitis (ED), Hypertension (ED) Referrals: Iraj Burton MD [Primary Care Provider] - 3 Days Additional Instructions: FOLLOW UP WITH YOUR PRIMARY CARE PROVIDER WITHIN ONE WEEK FOR HIGH BLOOD PRESSURE NOTED TODAY. RETURN TO THE ED FOR ANY WORSENING OR NEW SYMPTOMS. - Billing Disposition and Condition Condition: STABLE Disposition: Home
[2018-02-23] MEDS ORDERED: Dexamethasone IV* 4 MG/ML 1 ML (4 MG) IV SLOW PU ONE (12:52)
[2018-02-23] MEDS ORDERED: cefTRIAXone(*) 1 GM in NS 0.9% 50 ML* 50 ML IVPB ONE (12:52)
[2018-02-23 12:59] LABS: Urine Appearance Clear; Urine Blood Negative (Negative); Urine Color Colorless; Urine Ketones Negative (Negative); Urine Protein Negative (Negative); Urine Specific Gravity 1.003 (1.010-1.030); Urine Urobilinogen Negative (Negative)
--- NOTE | 2018-02-23 13:44 | RAD ---
INDICATION: Throat pain. Chronic pulmonary congestion. Former tobacco use. COMPARISON: March 05, 2015 CT. TECHNIQUE: Dual energy PA and routine lateral views of the chest were obtained. REPORT: Mildly elevated lung volumes and both minimal prominence and patchy rarefaction of the interstitial markings. No focal pulmonary lesion, compelling alveolar consolidation, pleural effusion, pneumothorax. The heart, pulmonary vasculature, and mediastinal contours are unremarkable. IMPRESSION: #. Stigmata of probable chronic obstructive pulmonary disease. No acute cardiopulmonary process evident.
[2018-02-23] MEDS ORDERED: Iohexol 350* (CONTRAST) 500 ML MDV IV ONE (13:47)
--- NOTE | 2018-02-23 14:36 | RAD ---
INDICATION: Hemoptysis. Elevated d-dimer. Throat pain. COMPARISON: February 23, 2018 chest radiograph. March 05, 2015 CT. TECHNIQUE: Multidetector CT images were obtained from the lung apices to the upper abdomen with 84 mL Omnipaque 350 IV contrast. Pulmonary angiogram protocol. 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 REPORT: Elevated lung volumes. Moderate emphysematous change. No suspicious focal pulmonary lesions, alveolar consolidation, pleural effusion, pneumothorax. Unremarkable subglottic airway. Negative for thoracic lymphadenopathy, cardiomegaly, or pericardial effusion. Coronary artery calcifications. Normal diameter thoracic aorta with mild atherosclerotic plaque. Negative for dissection of the thoracic aorta. No filling defects are identified from the main to the subsegmental pulmonary arteries to indicate presence of a pulmonary embolism. Unremarkable Limited images through the upper abdomen. 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 IMPRESSION: #. No evidence for pulmonary embolism. #. Findings of chronic obstructive pulmonary disease in the correct clinical context. #. Coronary artery calcifications. #. No acute cardiopulmonary process evident.
[2018-02-23] MEDS ORDERED: Labetalol IV* 5 MG/ML 20 ML VIAL IV PUSH ONE (15:10)
[2018-02-23 15:55] VITALS: BP 187/100
== END 2018-02-23 15:53 | disposition home or self-care (01) ==
LOC: ED 10:00
DX: K12.2 Cellulitis and abscess of mouth (principal); I10 Essential (primary) hypertension; I25.10 Atherosclerotic heart disease of native coronary artery without angina pectoris; K21.9 Gastro-esophageal reflux disease without esophagitis; Z79.899 Other long term (current) drug therapy; Z79.82 Long term (current) use of aspirin; Z86.19 Personal history of other infectious and parasitic diseases; Z88.8 Allergy status to other drugs, medicaments and biological substances
CPT/HCPCS: 36415; 71046; 71275; 80053; 81003; 83605; 84443; 85025; 85379; 86140; 87651; 93005; 96374; 96375; 99283; J0696; J1100; Q9967